=== PATIENT | female | born 1945 | race Caucasian/White ===

== ENCOUNTER 2019-09-02 14:24 | Inpatient (IN) ==
[2019-09-02 15:36] LABS: Basophils % 0.3 %; Eosinophils # 0.1 K/mcL (0.0-0.6); Hematocrit 22.8 % (35.3-44.9); Immature Granulocytes % 0.3 % (0-4); Lymphocytes % 34.5 %; Mean Corpuscular HGB Conc 26.3 g/dL (31.6-35.5); Mean Corpuscular Hemoglobin 19.5 pg (28.0-33.3); Mean Corpuscular Volume 74.3 fL (83.0-100.0); Mean Platelet Volume 9.8 fL (9.4-12.4); Monocytes # 0.4 K/mcL (0.0-1.3); Monocytes % 7.4 %; Neutrophils # 3.3 K/mcL (1.6-8.9); Platelet Count 343 K/mcL (140-400); Red Blood Count 3.07 M/mcL (3.82-4.97); Red Cell Distribution Width 18.7 % (11.5-14.5); Segmented Neutrophils % 56.5 %; White Blood Count 5.8 K/mcL (4.3-11.1)
[2019-09-02 15:56] LABS: Platelet Estimate Normal (Normal)
[2019-09-02 15:57] LABS: BUN/Creatinine Ratio 15 (6-26); Blood Urea Nitrogen 16 mg/dL (8-23); Carbon Dioxide 26 mEq/L (23-29); Chloride 103 mEq/L (98-107); Glucose 87 mg/dL (70-105); Hypochromasia Present (Not Present); Osmolality,Calculated 279 (280-300); Polychromasia 1+ (Not Present); Potassium 4.2 mEq/L (3.5-5.1); Sodium 134 mEq/L (136-145); Troponin I < 0.03 ng/mL (< 0.04); eGFR For African Americans 60 (> 60); eGFR For Non-African Americans 49 (> 60)
[2019-09-02 15:58] LABS: Anisocytosis 1+ (Not Present); Ovalocytes 1+ (Not Present)
[2019-09-02] MEDS ORDERED: Isovue-370 500 ML BOTTLE IVP ONE (16:08)
[2019-09-02] MEDS ORDERED: 0.9 % Sodium Chloride 250 ML ONE ×2 (17:58→23:18)
[2019-09-02] MEDS ORDERED: Naloxone 0.4 MG/ML INJ IVP PRN (18:12)
[2019-09-02] MEDS ORDERED: Ondansetron 4 MG/2 ML VIAL IVP PRN (18:12)
[2019-09-02 18:32] LABS: % Iron Saturation 3 % (15-50); Iron 16 mcg/dL (50-170); Transferrin 354 mg/dL (203-362)
[2019-09-02 18:53] LABS: Ferritin < 8 ng/mL (10-120)
[2019-09-02] MEDS ORDERED: Acetaminophen 325 MG TABLET PO PRN (20:32)
[2019-09-02 23:03] LABS: Activated Partial Thrombo Time 29.2 Seconds (26.0-36.0); INR 1.1; Prothrombin Time 12.3 Seconds (9.4-12.1)
[2019-09-03 04:32] LABS: Hematocrit 27.3 % (35.3-44.9); Mean Corpuscular HGB Conc 29.7 g/dL (31.6-35.5); Mean Corpuscular Hemoglobin 22.1 pg (28.0-33.3); Mean Corpuscular Volume 74.4 fL (83.0-100.0); Mean Platelet Volume 9.9 fL (9.4-12.4); Platelet Count 313 K/mcL (140-400); Red Blood Count 3.67 M/mcL (3.82-4.97); Red Cell Distribution Width 18.5 % (11.5-14.5); White Blood Count 6.3 K/mcL (4.3-11.1)
[2019-09-03 04:33] LABS: Hemoglobin 8.1 g/dL (11.5-15.4)
[2019-09-03 04:49] LABS: BUN/Creatinine Ratio 13 (6-26); Blood Urea Nitrogen 12 mg/dL (8-23); Calcium 8.8 mg/dL (8.6-10.3); Carbon Dioxide 24 mEq/L (23-29); Chloride 105 mEq/L (98-107); Glucose 91 mg/dL (70-105); Osmolality,Calculated 279 (280-300); Potassium 4.2 mEq/L (3.5-5.1); Sodium 135 mEq/L (136-145); eGFR For African Americans > 60 (> 60); eGFR For Non-African Americans 59 (> 60)
[2019-09-03] MEDS ORDERED: Furosemide 20 MG/2 ML VIAL IVP ONE (10:11)
[2019-09-03] MEDS ORDERED: *HR* Acetaminophen w/Cod 300-30 mg 1 TAB TABLET PO PRN (10:13)
[2019-09-03] MEDS ORDERED: Iron Sucrose Complex 400 MG in 0.9 % Sodium Chloride 250 ML IVPB SCH (10:15)
[2019-09-03] MEDS ORDERED: Fluticasone Propionate Nasal 50 MCG/SPRAY BOTTLE NS SCH (10:15)
[2019-09-03 10:19] LABS: Hematocrit 29.9 % (35.3-44.9); Hemoglobin 8.6 g/dL (11.5-15.4)
[2019-09-03] MEDS: Budesonide/Formoterol 160/4.5 1 PUFF INH IH SCH ×2 (11:00→20:45)
[2019-09-03] MEDS: Tiotropium 18 MCG inhalation IH SCH (11:08)
[2019-09-03] MEDS: predniSONE 20 MG TABLET PO SCH (12:01)
[2019-09-03] MEDS: NIFEdipine XL (24 HR) 60 MG TAB.ER.24 PO SCH (12:01)
[2019-09-03 16:44] LABS: Hemoglobin 9.5 g/dL (11.5-15.4)
[2019-09-03] MEDS ORDERED: *HR* Heparin 5,000 UNIT/ML VIAL IVP ONE (17:53)
[2019-09-03] MEDS ORDERED: *HR* Heparin 5,000 UNIT/ML VIAL IVP PRN ×2 (17:53)
[2019-09-03] MEDS ORDERED: Heparin 25,000 UNIT/250 ML D5W 25,000 UNIT/250 ML IV.SOLN IVC SCH (18:00)
[2019-09-03] MEDS ORDERED: Amiodarone Premix 150 MG/100 ML BAG IVPB ONE (18:30)
[2019-09-03] MEDS ORDERED: Amiodarone Premix 360 MG/200 ML BAG IVC ONE (18:30)
[2019-09-03 19:03] LABS: Hematocrit 33.4 % (35.3-44.9); Hemoglobin 9.8 g/dL (11.5-15.4); Mean Corpuscular HGB Conc 29.3 g/dL (31.6-35.5); Mean Corpuscular Hemoglobin 21.8 pg (28.0-33.3); Mean Corpuscular Volume 74.2 fL (83.0-100.0); Mean Platelet Volume 9.9 fL (9.4-12.4); Platelet Count 368 K/mcL (140-400); Red Cell Distribution Width 19.1 % (11.5-14.5); White Blood Count 5.2 K/mcL (4.3-11.1)
[2019-09-03 19:08] LABS: Heparin anti-factor XA UFH < 0.04 IU/mL (0.30-0.70)
[2019-09-03 19:09] LABS: INR 1.1
[2019-09-03 19:24] LABS: BUN/Creatinine Ratio 11 (6-26); Blood Urea Nitrogen 12 mg/dL (8-23); Calcium 9.3 mg/dL (8.6-10.3); Carbon Dioxide 22 mEq/L (23-29); Chloride 100 mEq/L (98-107); Glucose 170 mg/dL (70-105); Magnesium 2.2 mg/dL (1.6-2.6); Osmolality,Calculated 282 (280-300); Potassium 3.9 mEq/L (3.5-5.1); Sodium 134 mEq/L (136-145); Troponin I 0.03 ng/mL (< 0.04); eGFR For African Americans > 60 (> 60); eGFR For Non-African Americans 50 (> 60)
[2019-09-03 19:38] LABS: Thyroid Stimulating Hormone 13.523 mcIU/mL (0.340-5.600)
[2019-09-04] MEDS ORDERED: Amiodarone Premix 360 MG/200 ML BAG IVC SCH
[2019-09-04 01:58] LABS: Basophils % 0.2 %; Hemoglobin 9.1 g/dL (11.5-15.4); Immature Granulocytes % 0.3 % (0-4); Lymphocytes # 1.1 K/mcL (0.6-4.6); Lymphocytes % 18.2 %; Mean Corpuscular HGB Conc 29.4 g/dL (31.6-35.5); Mean Corpuscular Hemoglobin 21.9 pg (28.0-33.3); Mean Corpuscular Volume 74.7 fL (83.0-100.0); Mean Platelet Volume 10.4 fL (9.4-12.4); Monocytes # 0.3 K/mcL (0.0-1.3); Monocytes % 4.9 %; Neutrophils # 4.5 K/mcL (1.6-8.9); Platelet Count 362 K/mcL (140-400); Red Blood Count 4.15 M/mcL (3.82-4.97); Red Cell Distribution Width 19.1 % (11.5-14.5); Segmented Neutrophils % 76.4 %; White Blood Count 5.9 K/mcL (4.3-11.1)
[2019-09-04 02:20] LABS: BUN/Creatinine Ratio 14 (6-26); Blood Urea Nitrogen 14 mg/dL (8-23); Calcium 9.1 mg/dL (8.6-10.3); Carbon Dioxide 24 mEq/L (23-29); Chloride 102 mEq/L (98-107); Glucose 117 mg/dL (70-105); Osmolality,Calculated 282 (280-300); Sodium 135 mEq/L (136-145); eGFR For African Americans > 60 (> 60); eGFR For Non-African Americans 53 (> 60)
[2019-09-04] MEDS: NIFEdipine XL (24 HR) 60 MG TAB.ER.24 PO SCH (08:56)
[2019-09-04] MEDS: predniSONE 20 MG TABLET PO SCH (08:57)
[2019-09-04] MEDS: Budesonide/Formoterol 160/4.5 1 PUFF INH IH SCH (10:28)
[2019-09-04] MEDS: Tiotropium 18 MCG inhalation IH SCH (10:30)
[2019-09-04 11:12] VITALS: BP 121/64
== END 2019-09-04 14:00 | disposition home or self-care (01) | DRG 812 ==
LOC: SUATTDRO → EMEROOARM 14:24 → 3BNU 14:24 → SUATTDRO 19:16 → 3BNU 20:11 → 2NENU 21:04 → 3NENU 09-03 19:44
PROVIDERS: ADMIT Family Medicine; ATTEND Family Medicine